=== PATIENT | female | born 1970 | race African-American/Black ===

== ENCOUNTER 2018-10-02 10:48 | Observation (INO) | payer OTHER ==
[~2018-10-02] VITALS: Ht 167.6 cm; Wt 95.0 kg
[~2018-10-02 10:48] MED LIST: FERR-18; PREN1TAB49
[2018-10-02] MEDS ORDERED: ONDANSETRON 4 MG INJ IV STA (12:56)
[2018-10-02] MEDS ORDERED: morphine 4 MG/ML VIAL IV STA (12:56)
[2018-10-02] MEDS ORDERED: NITROGLYCERIN 2% 1 GM OINT PKT TD STA (12:56)
[2018-10-02] MEDS ORDERED: ASPIRIN 325 MG TAB PO STA (12:56)
[2018-10-02] MEDS ORDERED: NITROGLYCERIN (SL) 0.4 MG TAB SL PRN (13:00)
[2018-10-02] MEDS ORDERED: MAGN400T28 PO (13:37)
[2018-10-02] MEDS ORDERED: AMLO-147 PO (13:37)
[2018-10-02] MEDS ORDERED: CLON-379 PO (13:38)
--- NOTE | 2018-10-02 13:39 | ERD ---
ER Documentation Chief Complaint Chief Complaint Complains of chest pain since this am HPI This is a 48-year-old female with a history of hypertension with family history of cardiac disease with her father had a OH at the age of 45 with possible high cholesterol. Planing of a few days of chest pain today became waxing and waning chest pressure with radiation to the left shoulder and down the left arm. The chest pain is currently gone but there is some still residual pressure or aching sensation in the left shoulder. No palpitations or syncope but had mild shortness of breath. ROS All systems reviewed and are negative except as per history of present illness. Medications Home Meds Reported Medications Clonidine Hcl* (Clonidine Hcl*) 0.1 Mg Tab, 0.1 MG PO DAILY PRN for ELEVATED BLOOD PRESSURE, TAB 10/02/18 Magnesium Oxide* (Magnesium Oxide*) 400 Mg Tablet, 400 MG PO DAILY, TAB 10/02/18 Amlodipine Besylate* (Amlodipine Besylate*) 10 Mg Tablet, 10 MG PO DAILY, #30 TAB 10/02/18 Discontinued Reported Medications Ferrous Sulfate (Iron) 325 Mg Tablet 07/28/10 Vits W-Ca,Fe,Fa(<1MG) () 1 Tab Tablet 07/28/10 Allergies Allergies: Coded Allergies: quinine (Verified Allergy, Unknown, RASH, 10/02/18) PMhx/Soc Medical and Surgical Hx: pt denies Surgical Hx Hx Cardiac Disorders: Yes (HTN) Hx Alcohol Use: No Hx Substance Use: No Hx Tobacco Use: No Smoking Status: Never smoker FmHx Family History: No coronary disease Physical Exam Vitals Vital Signs Date Temp Pulse Resp B/P (MAP) Pulse Ox O2 O2 Flow FiO2 Time Delivery Rate 10/02/18 Nasal 2 13:11 Cannula 10/02/18 71 20 138/91 100 Room Air 12:57 (107) 10/02/18 97.1 81 20 139/98 100 10:54 (112) Physical Exam Const: Well-developed, well-nourished Head: Atraumatic, normocephalic Eyes: Normal Conjunctiva, PERRLA, EOMI, normal sclera, no nystagmus ENT: Normal External Ears, Nose and Mouth, moist mucus membranes. Neck: Full range of motion. No meningismus, no lymphadenopathy. Resp: Clear to auscultation bilaterally, no wheezing, rhonchi, rales Cardio: Regular rate and rhythm, no murmurs, S1 S2 present Abd: Soft, non tender x 4, non distended. Normal bowel sounds, no guarding or rebound, no pulsitile abdominal masses or bruits Skin: No petechiae or rashes, no ecchymosis , no maculopapular rash Back: No midline or flank tenderness Ext: No cyanosis, or edema, FROM x 4, normal inspection, neurovascularly intact x 4 Neur: Awake and alert, STR 5/5 x 4, sensation intact x 4, no focal findings, cerebellum intact Psych: Normal Mood and Affect Result Diagram: 10/02/18 1300 10/02/18 1300 Results 24 hrs Laboratory Tests Test 10/02/18 13:00 White Blood Count 5.2 10^3/ul Red Blood Count 4.68 10^6/ul Hemoglobin 12.5 g/dl Hematocrit 39.9 % Mean Corpuscular Volume 85.3 fl Mean Corpuscular Hemoglobin 26.7 pg Mean Corpuscular Hemoglobin Concent 31.3 g/dl Red Cell Distribution Width 12.6 % Platelet Count 297 10^3/UL Mean Platelet Volume 9.3 fl Immature Granulocytes % 0.200 % Neutrophils % 49.9 % Lymphocytes % 36.3 % Monocytes % 8.0 % Eosinophils % 5.0 % Basophils % 0.6 % Nucleated Red Blood Cells % 0.0 /100WBC Immature Granulocytes # 0.010 10^3/ul Neutrophils # 2.6 10^3/ul Lymphocytes # 1.9 10^3/ul Monocytes # 0.4 10^3/ul Eosinophils # 0.3 10^3/ul Basophils # 0.0 10^3/ul Nucleated Red Blood Cells # 0.0 10^3/ul Sodium Level 143 mmol/L Potassium Level 4.5 mmol/L Chloride Level 103 mmol/L Carbon Dioxide Level 27 mmol/L Anion Gap 13 Blood Urea Nitrogen 10 mg/dl Creatinine 0.68 mg/dl Est Glomerular Filtrat Rate mL/min > 60 mL/min Glucose Level 100 mg/dl Calcium Level 9.7 mg/dl Total Bilirubin 0.1 mg/dl Direct Bilirubin 0.00 mg/dl Indirect Bilirubin 0.1 mg/dl Aspartate Amino Transf (AST/SGOT) 23 IU/L Alanine Aminotransferase (ALT/SGPT) 21 IU/L Alkaline Phosphatase 91 IU/L Troponin I < 0.012 ng/ml Total Protein 8.5 g/dl Albumin 4.7 g/dl Globulin 3.80 g/dl Albumin/Globulin Ratio 1.23 Current Medications Medications Dose Sig/David Start Time Status Last (Trade) Ordered Route PRN Stop Time Admin Dose Reason Admin Aspirin 325 mg ONCE STAT 10/02/18 DC 10/02/18 (Aspirin) PO 12:56 13:05 10/02/18 12:58 1 inch ONCE STAT 10/02/18 DC 10/02/18 Nitroglycerin TD 12:56 13:05 10/02/18 12:58 (Nitroglyceri n 2% Oint) 1 tab Q5M UP TO 3 10/02/18 Nitroglycerin DOSES PRN 13:00 SL .CHEST (Nitroglyceri PAIN n (Sl Tab) 0.4 Mg) Morphine 4 mg ONCE STAT 10/02/18 DC 10/02/18 Sulfate IV 12:56 13:05 (morphine) 10/02/18 12:58 Ondansetron 4 mg ONCE STAT 10/02/18 DC 10/02/18 HCl (Zofran IV 12:56 13:05 Inj) 10/02/18 12:58 650 mg ONCE ONCE 10/02/18 DC 10/02/18 Acetaminophen PO 14:30 14:35 (Tylenol 10/02/18 14:32 Tab) Procedures/MDM MR #: [id number] DOS: 10/02/18 1256 Ordering MD: BETTINA SINGH DO Location: E/R Room/Bed: PROCEDURE: XR Chest. CLINICAL INDICATION: chest pain TECHNIQUE: Single frontal view of the chest was obtained COMPARISON: None FINDINGS: The heart and mediastinum are within normal limits. The lungs are clear. There is no pleural effusion or pneumothorax. RPTAT: AA IMPRESSION: No acute disease. .Stepan Slater MD, Date Time Electronically viewed and signed by .Stepan Slater MD, MD on 10/02/2018 13:24 .S/ CC: BETTINA SINGH DO [id number] EKG: Rate/Rhythm: Normal Sinus Rhythm,NL intervals QRS, ST, QT: NORMAL MS, QRS, QT] Impression: NORMAL EKG Cardiac Admit MDM: Patient's symptoms are concerning for cardiac cause will require inpatient workup and continuous monitoring. Further w/u for ischemia, arrhythmia, PE or dissection will be deferred to the inpatient team. Departure Diagnosis: Primary Impression: Chest pain Chest pain type: unspecified Qualified Codes: R07.9 - Chest pain, unspecified Condition: Stable BETTINA SINGH DO Oct 02, 2018 13:39
[2018-10-02] MEDS ORDERED: ACETAMINOPHEN 325 MG TAB PO ONE (14:30)
[2018-10-02] MEDS ORDERED: SOD CHLORIDE 0.9% 1,000 ML IV SCH (14:46)
[2018-10-02] MEDS ORDERED: ACETAMINOPHEN 325 MG TAB PO PRN ×3 (15:00)
[2018-10-02] MEDS ORDERED: ONDANSETRON 4 MG INJ IV PRN ×3 (15:00)
[2018-10-02] MEDS ORDERED: morphine 4 MG/ML VIAL IV PRN (15:00)
[2018-10-02] MEDS ORDERED: HYDROCODONE/APAP (5/325) TAB PO PRN (15:00)
[2018-10-02] MEDS ORDERED: NACL 0.9% 3 ML SYG IV SCH (15:00)
[2018-10-02] MEDS ORDERED: IOHEXOL 100 ML ONE (15:15)
[2018-10-02] MEDS ORDERED: SOD CHLORIDE 0.9% 100 ML ONE (15:15)
--- NOTE | 2018-10-02 15:23 | HP ---
Date/Time of Note Date/Time of Note DATE: 10/02/18 TIME: 15:22 Assessment/Plan VTE Prophylaxis Pharmacological prophylaxis: other Lines/Catheters IV Catheter Type (from Nrsg): Peripheral IV Assessment/Plan Hospital Course Objective Physical exam General: Patient is laying in bed and answers questions appropriately Mentation: Patient is alert and oriented 4, Head: Normocephalic atraumatic Eyes: EOMI, pupils reactive to light Neck: Supple, nontender, midline Respiratory: Clear to auscultation bilaterally Cardiovascular: regular rate, no obvious murmurs Gastrointestinal: non-tender to palpation, bowel sounds heard. Neurological: Moves all extremities spontaneously Skin: No new skin lesions Assessment and plan Chest pain with radiation to the back -Rule out ACS -EKG noted -Cardiology consulted, Dr. Daley -Trend troponins, currently negative x1 -CT angio ordered to rule out dissection due to radiation of chest pain to the back, stat -Aspirin, statin Hypertension -Continue home meds Disposition -Continue to trend troponins, pending CT chest and cardiology consultation Result Diagram: 10/02/18 1300 10/02/18 1300 Results 24hrs Laboratory Tests Test 10/02/18 13:00 White Blood Count 5.2 Red Blood Count 4.68 Hemoglobin 12.5 Hematocrit 39.9 Mean Corpuscular Volume 85.3 Mean Corpuscular Hemoglobin 26.7 L Mean Corpuscular Hemoglobin Concent 31.3 L Red Cell Distribution Width 12.6 Platelet Count 297 Mean Platelet Volume 9.3 Immature Granulocytes % 0.200 Neutrophils % 49.9 Lymphocytes % 36.3 Monocytes % 8.0 Eosinophils % 5.0 Basophils % 0.6 Nucleated Red Blood Cells % 0.0 Immature Granulocytes # 0.010 Neutrophils # 2.6 Lymphocytes # 1.9 Monocytes # 0.4 Eosinophils # 0.3 Basophils # 0.0 Nucleated Red Blood Cells # 0.0 Sodium Level 143 Potassium Level 4.5 Chloride Level 103 Carbon Dioxide Level 27 Anion Gap 13 Blood Urea Nitrogen 10 Creatinine 0.68 Est Glomerular Filtrat Rate mL/min > 60 Glucose Level 100 Calcium Level 9.7 Total Bilirubin 0.1 L Direct Bilirubin 0.00 Indirect Bilirubin 0.1 Aspartate Amino Transf (AST/SGOT) 23 Alanine Aminotransferase (ALT/SGPT) 21 Alkaline Phosphatase 91 Troponin I < 0.012 Total Protein 8.5 H Albumin 4.7 Globulin 3.80 H Albumin/Globulin Ratio 1.23 HPI/ROS Admit Date/Time Admit Date/Time Hx of Present Illness Patient is an female with a past medical history significant for hypertension who presents to [facility] for new onset centralized chest pain. Patient states that it began this morning and it was centered in the substernal area of the chest and radiated to her back. Patient states that currently the chest pain has resolved however she was given pain medication. Patient also stated that the pain radiated down her left arm. Patient was concerned due to her father having a heart attack at age of 45. Patient currently has no other acute complaints and wants to go home however is concerned about her chest pain. Patient denies nausea, vomiting, headache, abdominal pain, leg pain PMH/Family/Social Past Medical History Medications Current Medications Nitroglycerin (Nitroglycerin (Sl Tab) 0.4 Mg) 1 tab Q5M UP TO 3 DOSES PRN SL .CHEST PAIN; Start 10/02/18 at 13:00 Sodium Chloride 1,000 ml @ 80 mls/hr [id number] IV ; Start 10/02/18 at 14:46; Stop 10/03/18 at 03:15 Ondansetron HCl (Zofran Inj) 4 mg ER BRIDGE PRN IV NAUSEA/VOMITING; Start 10/02/18 at 15:00; Stop 10/03/18 at 14:59 Acetaminophen (Tylenol Tab) 650 mg ER BRIDGE PRN PO .MILD PAIN 1-3 OR TEMP; Start 10/02/18 at 15:00; Stop 10/03/18 at 14:59 Ondansetron HCl (Zofran Inj) 4 mg ER BRIDGE PRN IV NAUSEA/VOMITING; Start 10/02/18 at 15:00; Stop 10/03/18 at 14:59 Acetaminophen (Tylenol Tab) 650 mg ER BRIDGE PRN PO .MILD PAIN 1-3 OR TEMP; Start 10/02/18 at 15:00; Stop 10/03/18 at 14:59 Coded Allergies: quinine (Verified Allergy, Unknown, RASH, 10/02/18) Social History Smoking Status: Never smoker Exam/Review of Systems Vital Signs Vitals Vital Signs Date Temp Pulse Resp B/P (MAP) Pulse Ox O2 O2 Flow FiO2 Time Delivery Rate 10/02/18 97.3 65 13 127/82 100 Nasal 2.0 14:35 (97) Cannula JENNIFER VALENTIN Oct 02, 2018 15:23
[2018-10-02 16:27] VITALS: PULSE 67
[2018-10-02 16:33] VITALS: Ht 167.6 cm; Wt 95.0 kg
--- NOTE | 2018-10-02 16:57 | RADRPT ---
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 Physician: JENNIFER VALENTIN Quality: Good Procedures: Transthoracic echocardiogram with complete 2D, M-Mode, and doppler examination. Indications: Coronary Artery Disease. 2D/M Mode Doppler Measurement Value Normal Ranges Measurement Value Normal Ranges LVIDd 2D 4.5 3.5 - 5.6 cm AV Mean Stephen 0.9 m/sec LVIDs 2D 3.5 2.1 - 4.1 cm AV Mean PG 4.0 mmHg LVPWd 2D 0.9 0.6 - 1.1 cm AV Peak Stephen 1.5 m/sec IVSd 2D 0.9 0.6 - 1.1 cm AV Peak PG 9.0 mmHg AoR Diam 2D 3.0 2.0 - 3.7 cm AV VTI 26.8 cm LA/Ao 2D 1 0 - 1 LVOT Mean Stephen 0.8 m/sec EF 2D 46.0 50.0 - 65.0 % LVOT Mean PG 3.0 mmHg LA Dimen 2D 3.0 2.3 - 4.0 cm LVOT Peak Stephen 1.2 m/sec IVC Diam 1.6 1.2 - 2.0 LVOT Peak PG 6.0 mmHg MV E Peak Stephen 0.8 m/sec MV A Peak Stephen 0.8 m/sec MV E/A 1.1 MV PHT 69.0 msec MV Decel Time 236 msec MV Decel [place] 4 MV E/A 1.1 MV PHT 69.0 msec MVA PHT 3.2 cm2 TR Peak Stephen 2.3 m/sec TR Peak PG 22.0 mmHg RVSP 25.0 mmHg RA Pressure 3.0 Findings Left Ventricle: Normal left ventricular systolic function. Normal left ventricular cavity size. Normal left ventricular wall thickness. Ejection fraction is visually estimated at 6570 %. Tissue Doppler/Mitral Doppler indices are within normal limits. Right Ventricle: Normal right ventricular size. Normal right ventricular systolic function. Left Atrium: The left atrium is normal in size. Right Atrium: The right atrium is normal in size. RA Pressure=3. Mitral Valve: Normal appearance and function of the mitral valve with trace physiologic regurgitation. Aortic Valve: Normal appearance of the aortic valve. No significant aortic stenosis or insufficiency. Tricuspid Valve: Normal appearance and function of the tricuspid valve with trace physiologic regurgitation. Normal right ventricular systolic pressure. Estimated peak PA systolic pressure 25 mmHg. Pulmonic Valve: Normal pulmonic valve appearance. Pericardium: Normal pericardium with no significant pericardial effusion. Aorta: Normal aortic root. IVC: Normal size and normal respiratory collapse consistent with normal right atrial pressure. Conclusions Normal left ventricular systolic function. Normal left ventricular cavity size. Normal left ventricular wall thickness. Ejection fraction is visually estimated at 65-70 %. Tissue Doppler/Mitral Doppler indices are within normal limits. Normal appearance and function of the mitral valve with trace physiologic regurgitation. Normal appearance of the aortic valve. No significant aortic stenosis or insufficiency. Normal appearance and function of the tricuspid valve with trace physiologic regurgitation. Normal right ventricular systolic pressure. Estimated peak PA systolic pressure 25 mmHg. Electronically Signed By: Zachery Daley 02-Oct-2018 16:56:40 -0800 Patient Name: AMIE GALLARDO Study Date: 02-Oct-2018 [id number]
--- NOTE | 2018-10-02 18:02 | CONS ---
Assessment/Plan Assessment/Plan Hospital Course (Demo Recall) Chest pain rule out acute coronary syndrome Hypertension: Currently under good control Family history early coronary artery disease Rule out dyslipidemia Recommendation: Continue with aspirin. Rule out SC with serial cardiac enzyme Continue with home amlodipine for now Statin for now Lexiscan stress test tomorrow afternoon to rule out significant obstructive coronary artery disease Thank you for his referral will continue to follow along with you. SAMY AL MD [facility] Consultation Date/Type/Reason Admit Date/Time Date of Consultation: Oct 02, 2018 Type of Consult Cardiology Reason for Consultation chest pain Requesting Provider: DOMENICA SALDAÑA Date/Time of Note DATE: 10/02/18 TIME: 17:58 Hx of Present Illness Interventional cardiology consultation note Chief complaint: Chest pain Reason for consult: Chest pain History of present illness: Thank you for this referral. History was obtained from the patient discussion with the staff and physician review of the chart. This is a pleasant 48-year-old -[place] female with history of hypertension and possibly dyslipidemia who presented to emergency room above complaint. Patient said that she was sitting on her desk when she had sudden onset of mild to moderate substernal anterior chest pain. It was pressure-like. Lasted about 5 minutes resolve on his own. Patient has been chest pain-free now has been admitted for further workup. Allergies: Quinidine Medications amlodipine. Magnesium Family history: Father with SC in his 40s Social history: Does not smoke or drink Past medical history: Hypertension, dyslipidemia Review of system: Patient denies all others except for above-mentioned Past Medical History Home Meds Reported Medications Clonidine Hcl* (Clonidine Hcl*) 0.1 Mg Tab, 0.1 MG PO DAILY PRN for ELEVATED BLOOD PRESSURE, TAB 10/02/18 Magnesium Oxide* (Magnesium Oxide*) 400 Mg Tablet, 400 MG PO DAILY, TAB 10/02/18 Amlodipine Besylate* (Amlodipine Besylate*) 10 Mg Tablet, 10 MG PO DAILY, #30 TAB 10/02/18 Discontinued Reported Medications Ferrous Sulfate (Iron) 325 Mg Tablet 07/28/10 Vits W-Ca,Fe,Fa(<1MG) () 1 Tab Tablet 07/28/10 Medications Current Medications Nitroglycerin (Nitroglycerin (Sl Tab) 0.4 Mg) 1 tab Q5M UP TO 3 DOSES PRN SL .CHEST PAIN; Start 10/02/18 at 13:00 Sodium Chloride 1,000 ml @ 80 mls/hr [id number] IV Last administered on 10/02/18at 14:46; Admin Dose 80 MLS/HR; Start 10/02/18 at 14:46; Stop 10/03/18 at 03:15 IV Flush (NS 3 ml) 3 ml PER PROTOCOL IV ; Start 10/02/18 at 15:00 Ondansetron HCl (Zofran Inj) 4 mg Q6H PRN IV NAUSEA/VOMITING; Start 10/02/18 at 15:00 Aspirin (Aspirin) 81 mg DAILY PO ; Start 10/03/18 at 09:00 Acetaminophen (Tylenol Tab) 650 mg Q6H PRN PO .PAIN 1-3 OR TEMP; Start 10/02/18 at 15:00 Acetaminophen/ Hydrocodone Bitart ([place] (5/325)) 1 tab Q6H PRN PO .PAIN 4-6; Start 10/02/18 at 15:00 Morphine Sulfate (morphine) 2 mg Q4H PRN IV .PAIN 7-10; Start 10/02/18 at 15:00 Famotidine (Pepcid) 20 mg Q12 PO ; Start 10/02/18 at 21:00 Heparin Sodium (Porcine) (Heparin (5000 Units/1ml)) 5,000 unit Q8 SC ; Start 10/02/18 at 22:00 Amlodipine Besylate (Norvasc) 10 mg DAILY PO ; Start 10/03/18 at 09:00 Magnesium Oxide (Mag-Ox 400) 400 mg DAILY PO ; Start 10/03/18 at 09:00 Atorvastatin Calcium (Lipitor) 80 mg HS PO ; Start 10/02/18 at 21:00 Allergies: Coded Allergies: quinine (Verified Allergy, Unknown, RASH, 10/02/18) Social History Smoking Status: Never smoker Exam/Review of Systems Vital Signs Vitals Vital Signs Date Temp Pulse Resp B/P (MAP) Pulse Ox O2 O2 Flow FiO2 Time Delivery Rate 10/02/18 Nasal 2.0 16:49 Cannula 10/02/18 67 16:27 10/02/18 97.8 16 97/59 (72) 100 16:09 Exam Exam General: no acute distress HEENT: NC/AT. pupils are equal. round. NECK: NO JVD. no stridor. CV: RRR. systolic murmur; no gallop or rubs. PULM: no wheezing or rhonchi. GI: SOFT, NT, ND, no rebound or guarding Extremity: trace B/L LE edema. no clubbing. neuro: awake and alert, OX3. Psych: calm and pleasant rectal: deferred EKG was personally within normal sinus rhythm. Normal ECG Echocardiogram was personally reviewed which shows: Normal left ventricular systolic function. Normal left ventricular cavity size. Normal left ventricular wall thickness. Ejection fraction is visually estimated at 65-70 %. Tissue Doppler/Mitral Doppler indices are within normal limits. Normal appearance and function of the mitral valve with trace physiologic regurgitation. Normal appearance of the aortic valve. No significant aortic stenosis or insufficiency. Normal appearance and function of the tricuspid valve with trace physiologic regurgitation. Normal right ventricular systolic pressure. Estimated peak PA systolic pressure 25 mmHg. Labs Result Diagram: 10/02/18 1300 10/02/18 1300 Results 24hrs Laboratory Tests Test 10/02/18 13:00 White Blood Count 5.2 Red Blood Count 4.68 Hemoglobin 12.5 Hematocrit 39.9 Mean Corpuscular Volume 85.3 Mean Corpuscular Hemoglobin 26.7 L Mean Corpuscular Hemoglobin Concent 31.3 L Red Cell Distribution Width 12.6 Platelet Count 297 Mean Platelet Volume 9.3 Immature Granulocytes % 0.200 Neutrophils % 49.9 Lymphocytes % 36.3 Monocytes % 8.0 Eosinophils % 5.0 Basophils % 0.6 Nucleated Red Blood Cells % 0.0 Immature Granulocytes # 0.010 Neutrophils # 2.6 Lymphocytes # 1.9 Monocytes # 0.4 Eosinophils # 0.3 Basophils # 0.0 Nucleated Red Blood Cells # 0.0 Sodium Level 143 Potassium Level 4.5 Chloride Level 103 Carbon Dioxide Level 27 Anion Gap 13 Blood Urea Nitrogen 10 Creatinine 0.68 Est Glomerular Filtrat Rate mL/min > 60 Glucose Level 100 Calcium Level 9.7 Total Bilirubin 0.1 L Direct Bilirubin 0.00 Indirect Bilirubin 0.1 Aspartate Amino Transf (AST/SGOT) 23 Alanine Aminotransferase (ALT/SGPT) 21 Alkaline Phosphatase 91 Troponin I < 0.012 Total Protein 8.5 H Albumin 4.7 Globulin 3.80 H Albumin/Globulin Ratio 1.23 Serum HCG, Qualitative NEGATIVE Medications Medications Current Medications Nitroglycerin (Nitroglycerin (Sl Tab) 0.4 Mg) 1 tab Q5M UP TO 3 DOSES PRN SL .CHEST PAIN; Start 10/02/18 at 13:00 Sodium Chloride 1,000 ml @ 80 mls/hr [id number] IV Last administered on 10/02/18at 14:46; Admin Dose 80 MLS/HR; Start 10/02/18 at 14:46; Stop 10/03/18 at 03:15 IV Flush (NS 3 ml) 3 ml PER PROTOCOL IV ; Start 10/02/18 at 15:00 Ondansetron HCl (Zofran Inj) 4 mg Q6H PRN IV NAUSEA/VOMITING; Start 10/02/18 at 15:00 Aspirin (Aspirin) 81 mg DAILY PO ; Start 10/03/18 at 09:00 Acetaminophen (Tylenol Tab) 650 mg Q6H PRN PO .PAIN 1-3 OR TEMP; Start 10/02/18 at 15:00 Acetaminophen/ Hydrocodone Bitart ([place] (5/325)) 1 tab Q6H PRN PO .PAIN 4-6; Start 10/02/18 at 15:00 Morphine Sulfate (morphine) 2 mg Q4H PRN IV .PAIN 7-10; Start 10/02/18 at 15:00 Famotidine (Pepcid) 20 mg Q12 PO ; Start 10/02/18 at 21:00 Heparin Sodium (Porcine) (Heparin (5000 Units/1ml)) 5,000 unit Q8 SC ; Start 10/02/18 at 22:00 Amlodipine Besylate (Norvasc) 10 mg DAILY PO ; Start 10/03/18 at 09:00 Magnesium Oxide (Mag-Ox 400) 400 mg DAILY PO ; Start 10/03/18 at 09:00 Atorvastatin Calcium (Lipitor) 80 mg HS PO ; Start 10/02/18 at 21:00 SAMY AL MD Oct 02, 2018 18:01
--- NOTE | 2018-10-02 19:25 | NUR ---
RN NOTE RECEIVED THE PT AT 1645 FROM ER , SKIN INTACT , PT AMBULATORY , PT REFUSED PICTURE TAKING . SR ON THE MONITOR , ON 2 L NASAL CANULA . STRESS TEST TOMORROW.
[2018-10-02 20:00] VITALS: BP 100/62; PULSE 67; PULSE 68
[2018-10-02] MEDS ORDERED: ATORVASTATIN 80 MG TAB PO SCH (21:00)
[2018-10-02] MEDS: FAMOTIDINE 20 MG TAB PO SCH (21:22)
[2018-10-02] MEDS: HEPARIN 5,000 UNIT/1 ML VIAL SC SCH (21:28)
[2018-10-03] VITALS (8 sets, daily range): BP systolic 102–131; BP diastolic 60–86; PULSE 55–85; RESP 18–20
--- NOTE | 2018-10-03 06:41 | NUR ---
RN NOTES: ORDERS NPO AFTER 0900 AM. PT SLEPT WELL LAST NIGHT. AMBULATING TO THE RESTROOM WITH STEADY GAIT. WALKING TO THE RESTROOM, ON ROOM AIR WITH NO SOB. NO C/O CHEST DISCOMFORT. EDUCATION ON SIDE EFFECTS OF HEPARIN SUBQ, PT VERBALIZED UNDERSTANDING. COLLECTED CLEAN CATCH URINE FOR TEST. PT SIT UP IN BED, ATE FOODS FROM HOME. PT AWARE OF NO CAFFEIN, NO TEA, NO SODA, AND NO CHOCOLATE ON HER EARLY MEAL. WILL HAVE STRESS TEST TODAY.
[2018-10-03] MEDS: HEPARIN 5,000 UNIT/1 ML VIAL SC SCH ×2 (07:03→14:00)
[2018-10-03] MEDS: FAMOTIDINE 20 MG TAB PO SCH (08:18)
[2018-10-03] MEDS ORDERED: AMLODIPINE 10 MG TAB PO SCH (09:00)
[2018-10-03] MEDS ORDERED: MAGNESIUM OXIDE 400 MG TAB PO SCH (09:00)
[2018-10-03] MEDS ORDERED: ASPIRIN 81 MG TAB PO SCH (09:00)
[2018-10-03] MEDS ORDERED: REGADENOSON 0.4 MG/5 ML SYG ONE (14:30)
--- NOTE | 2018-10-03 16:53 | CONS ---
Consult Date/Type/Reason Admit Date/Time Oct 02, 2018 at 14:47 Initial Consult Date 10/02/18 Requesting Provider: DOMENICA SALDAÑA Date/Time of Note DATE: 10/03/18 TIME: 16:51 Subjective Cardiology follow-up progress note Subjective: Patient with no chest pain or pressure no palpitation wants to go home. Discussed multiple physicians including patient regular public aid eligibility assistant Dr. Schwab Objective: General: no acute distress HEENT: NC/AT. pupils are equal. round. NECK: NO JVD. no stridor. CV: RRR. systolic murmur; no gallop or rubs. PULM: no wheezing or rhonchi. GI: SOFT, NT, ND, no rebound or guarding Extremity: trace B/L LE edema. no clubbing. neuro: awake and alert, OX3. Psych: calm and pleasant rectal: deferred EKG was personally within normal sinus rhythm. Normal ECG Echocardiogram was personally reviewed which shows: Normal left ventricular systolic function. Normal left ventricular cavity size. Normal left ventricular wall thickness. Ejection fraction is visually estimated at 65-70 %. Tissue Doppler/Mitral Doppler indices are within normal limits. Normal appearance and function of the mitral valve with trace physiologic regurgitation. Normal appearance of the aortic valve. No significant aortic stenosis or insufficiency. Normal appearance and function of the tricuspid valve with trace physiologic regurgitation. Normal right ventricular systolic pressure. Estimated peak PA systolic pressure 25 mmHg. Objective Vitals Vital Signs Date Temp Pulse Resp B/P (MAP) Pulse Ox O2 O2 Flow FiO2 Time Delivery Rate 10/03/18 85 16:24 10/03/18 98.5 18 131/86 100 15:51 (101) 10/03/18 Nasal 2.0 07:27 Cannula Intake and Output 10/02/18 10/02/18 10/03/18 1515:00 23:00 07:00 IntakeIntake Total 100 ml 550 ml BalanceBalance 100 ml 550 ml Results/Medications Result Diagram: 10/03/18 0516 10/03/18 0516 Results 24 hrs Laboratory Tests Test 10/02/18 18:49 10/03/18 00:25 10/03/18 05:16 Troponin I < 0.012 < 0.012 White Blood Count 5.1 Red Blood Count 4.13 L Hemoglobin 11.3 L Hematocrit 35.6 L Mean Corpuscular Volume 86.2 Mean Corpuscular Hemoglobin 27.4 L Mean Corpuscular Hemoglobin Concent 31.7 L Red Cell Distribution Width 12.7 Platelet Count 272 Mean Platelet Volume 9.3 Immature Granulocytes % 0.200 Neutrophils % 51.7 Lymphocytes % 34.3 Monocytes % 7.9 Eosinophils % 5.1 Basophils % 0.8 Nucleated Red Blood Cells % 0.0 Immature Granulocytes # 0.010 Neutrophils # 2.6 Lymphocytes # 1.7 Monocytes # 0.4 Eosinophils # 0.3 Basophils # 0.0 Nucleated Red Blood Cells # 0.0 Sodium Level 142 Potassium Level 4.8 Chloride Level 104 Carbon Dioxide Level 24 Anion Gap 14 H Blood Urea Nitrogen 13 Creatinine 0.81 Est Glomerular Filtrat Rate mL/min > 60 Glucose Level 107 Hemoglobin A1c 6.0 H Calcium Level 9.3 Magnesium Level 2.1 Total Bilirubin 0.1 L Direct Bilirubin 0.00 Indirect Bilirubin 0.1 Aspartate Amino Transf (AST/SGOT) 19 Alanine Aminotransferase (ALT/SGPT) 20 Alkaline Phosphatase 71 Creatine Kinase 146 Total Protein 7.0 # Albumin 3.9 Globulin 3.10 Albumin/Globulin Ratio 1.25 Triglycerides Level 113 Cholesterol Level 180 LDL Cholesterol, Calculated 117 HDL Cholesterol 40 Cholesterol/HDL Ratio 4.5 Thyroid Stimulating Hormone (TSH) 1.440 Home Meds Reported Medications Clonidine Hcl* (Clonidine Hcl*) 0.1 Mg Tab, 0.1 MG PO DAILY PRN for ELEVATED BLOOD PRESSURE, TAB 10/02/18 Magnesium Oxide* (Magnesium Oxide*) 400 Mg Tablet, 400 MG PO DAILY, TAB 10/02/18 Amlodipine Besylate* (Amlodipine Besylate*) 10 Mg Tablet, 10 MG PO DAILY, #30 TAB 10/02/18 Discontinued Reported Medications Ferrous Sulfate (Iron) 325 Mg Tablet 07/28/10 Vits W-Ca,Fe,Fa(<1MG) () 1 Tab Tablet 07/28/10 Medications Current Medications Nitroglycerin (Nitroglycerin (Sl Tab) 0.4 Mg) 1 tab Q5M UP TO 3 DOSES PRN SL .CHEST PAIN; Start 10/02/18 at 13:00 IV Flush (NS 3 ml) 3 ml PER PROTOCOL IV ; Start 10/02/18 at 15:00 Ondansetron HCl (Zofran Inj) 4 mg Q6H PRN IV NAUSEA/VOMITING; Start 10/02/18 at 15:00 Aspirin (Aspirin) 81 mg DAILY PO Last administered on 10/03/18at 08:18; Admin Dose 81 MG; Start 10/03/18 at 09:00 Acetaminophen (Tylenol Tab) 650 mg Q6H PRN PO .PAIN 1-3 OR TEMP; Start 10/02/18 at 15:00 Acetaminophen/ Hydrocodone Bitart ([place] (5/325)) 1 tab Q6H PRN PO .PAIN 4-6 Last administered on 10/02/18at 17:58; Admin Dose 1 TAB; Start 10/02/18 at 15:00 Morphine Sulfate (morphine) 2 mg Q4H PRN IV .PAIN 7-10; Start 10/02/18 at 15:00 Famotidine (Pepcid) 20 mg Q12 PO Last administered on 10/03/18at 08:18; Admin Dose 20 MG; Start 10/02/18 at 21:00 Heparin Sodium (Porcine) (Heparin (5000 Units/1ml)) 5,000 unit Q8 SC Last administered on 10/03/18at 07:03; Admin Dose 5,000 UNIT; Start 10/02/18 at 22:00 Amlodipine Besylate (Norvasc) 10 mg DAILY PO Last administered on 10/03/18at 08:17; Admin Dose 10 MG; Start 10/03/18 at 09:00 Magnesium Oxide (Mag-Ox 400) 400 mg DAILY PO Last administered on 10/03/18at 08:18; Admin Dose 400 MG; Start 10/03/18 at 09:00 Metoprolol Succinate (Toprol Xl) 12.5 mg QHS PO ; Start 10/03/18 at 21:00 Atorvastatin Calcium (Lipitor) 20 mg HS PO ; Start 10/03/18 at 21:00 Assessment/Plan Hospital Course (Demo Recall) Chest pain : TN was ruled out Hypertension: Currently under good control Family history early coronary artery disease Rule out dyslipidemia Recommendation: Continue with aspirin. Low-dose beta-anita and statin Lexiscan stress test shows a small amount of ischemia which is probably breast soft tissue attenuation. Above findings discussed with the patient. But decided to continue medical therapy only at this point. Patient to follow-up with her regular public aid eligibility assistant and if he has recurrent chest pain we will can consider more invasive approach as well. Thank you for his referral will continue to follow along with you. SAMY AL MD [facility] SAMY AL MD Oct 03, 2018 16:53
[2018-10-03] MEDS ORDERED: ASPI-831 PO (17:00)
[2018-10-03] MEDS ORDERED: ATOR20TA65 PO (17:00)
[2018-10-03] MEDS ORDERED: METO-335 PO (17:00)
--- NOTE | 2018-10-03 17:02 | PDOCDIS ---
Discharge Instructions CONDITION [id number] Patient Condition: [id number] Stable ACTIVITY: [id number] Activity Restrictions: [id number] Slowly Increase Activity FOLLOW UP/APPOINTMENTS Follow-up Plan 1. Please follow up with your primary care provider/breast surgeon as soon as possible. Your breast surgeon and our breast surgeon have already spoken. Please take medications as directed, prescriptions will be provided. JENNIFER VALENTIN Oct 03, 2018 17:02
--- NOTE | 2018-10-03 17:07 | DS ---
Date/Time of Note Date/Time of Note DATE: 10/03/18 TIME: 17:07 Discharge Summary Admission/Discharge Info Admit Date/Time Oct 02, 2018 at 14:47 Discharge Date/Time Patient Condition: Stable Hx of Present Illness Patient is an female with a past medical history significant for hypertension who presents to [facility] for new onset centralized chest pain. Patient states that it began this morning and it was centered in the substernal area of the chest and radiated to her back. Patient states that currently the chest pain has resolved however she was given pain medication. Patient also stated that the pain radiated down her left arm. Patient was concerned due to her father having a heart attack at age of 45. Patient currently has no other acute complaints and wants to go home however is concerned about her chest pain. Patient denies nausea, vomiting, headache, abdominal pain, leg pain Hospital Course Patient is a female with past medical history significant for hypertension who presented to [facility] for chest pain. Patient was admitted for acute coronary syndrome rule out and was also seen by cardiology. Patient had troponins drawn and were negative and patient underwent cardiac stress test which did find a small reversible perfusion defect, after discussion with cardiology and patient's own rubber flap tuber machine operator who was determined the best course of action was to continue on maximum medical therapy and for patient to follow-up with her rubber flap tuber machine operator as soon as possible. As of this time patient already has an appointment with rubber flap tuber machine operator and the rubber flap tuber machine operator has been updated by our rubber flap tuber machine operator here in house. Patient will be discharged on appropriate additional medications to follow-up with a rubber flap tuber machine operator soon as possible Discharge diagnosis Chest pain, resolved Hypertension Coronary artery disease, questionable Home Meds Active Scripts Aspirin (Aspirin) 81 Mg Chew, 81 MG PO DAILY for 30 Days, #30 TAB Prov:JENNIFER VALENTIN 10/03/18 Metoprolol Succinate* (Toprol XL*) 25 Mg Tab.sr.24h, 12.5 MG PO QHS for 30 Days, #15 Prov:JENNIFER VALENTIN 10/03/18 Atorvastatin Calcium (Atorvastatin Calcium) 20 Mg Tablet, 20 MG PO HS for 30 Day s, #30 TAB Prov:JENNIFER VALENTIN 10/03/18 Reported Medications Clonidine Hcl* (Clonidine Hcl*) 0.1 Mg Tab, 0.1 MG PO DAILY PRN for ELEVATED BLOOD PRESSURE, TAB 10/02/18 Magnesium Oxide* (Magnesium Oxide*) 400 Mg Tablet, 400 MG PO DAILY, TAB 10/02/18 Amlodipine Besylate* (Amlodipine Besylate*) 10 Mg Tablet, 10 MG PO DAILY, #30 TAB 10/02/18 Discontinued Reported Medications Ferrous Sulfate (Iron) 325 Mg Tablet 07/28/10 Vits W-Ca,Fe,Fa(<1MG) () 1 Tab Tablet 07/28/10 Follow-up Plan 1. Please follow up with your primary care provider/rubber flap tuber machine operator as soon as possible. Your rubber flap tuber machine operator and our rubber flap tuber machine operator have already spoken. Please take medications as directed, prescriptions will be provided. Primary Care Provider Not On Staff Doctor Time spent on discharge: > 30 minutes Pending Labs Laboratory Tests Test 10/02/18 18:49 10/03/18 00:25 10/03/18 05:16 Troponin I < 0.012 < 0.012 ng/ml (0.000-0.120) ng/ml (0.000-0.120 ) White Blood Count 5.1 10^3/ul (4.8-10.8) Red Blood Count 4.13 10^6/ul (4.20-5.40 ) Hemoglobin 11.3 g/dl (12.0-16.0) Hematocrit 35.6 % (37.0-47.0) Mean Corpuscular 86.2 Volume fl (82.0-101.0) Mean Corpuscular 27.4 Hemoglobin pg (29.0-33.0) Mean Corpuscular 31.7 Hemoglobin Concent g/dl (32.0-37.0) Red Cell 12.7 % (11.5-14.5) Distribution Width Platelet Count 272 10^3/UL (140-415) Mean Platelet 9.3 fl (7.4-10.4) Volume Immature 0.200 Granulocytes % % (0.001-0.429) Neutrophils % 51.7 % (39.0-77.0) Lymphocytes % 34.3 % (15.0-51.0) Monocytes % 7.9 % (0.0-11.0) Eosinophils % 5.1 % (0.0-7.0) Basophils % 0.8 % (0.0-2.0) Nucleated Red Blood 0.0 Cells % /100WBC (0.0-0.0) Immature 0.010 Granulocytes # 10^3/ul (0.0-0.031 ) Neutrophils # 2.6 10^3/ul (1.6-7.5) Lymphocytes # 1.7 10^3/ul (0.8-2.9) Monocytes # 0.4 10^3/ul (0.3-0.9) Eosinophils # 0.3 10^3/ul (0.0-0.5) Basophils # 0.0 10^3/ul (0.0-0.1) Nucleated Red Blood 0.0 Cells # 10^3/ul (0.0-0.0) Sodium Level 142 mmol/L (135-144) Potassium Level 4.8 mmol/L (3.5-5.1) Chloride Level 104 mmol/L (97-110) Carbon Dioxide 24 mmol/L (21-31) Level Anion Gap 14 (5-13) Blood Urea 13 mg/dl (7-20) Nitrogen Creatinine 0.81 mg/dl (0.44-1.00) Est Glomerular > 60 mL/min (>60) Filtrat Rate mL/min Glucose Level 107 mg/dl (70-220) Hemoglobin A1c 6.0 % (0-5.9) Calcium Level 9.3 mg/dl (8.4-10.2) Magnesium Level 2.1 mg/dl (1.7-2.5) Total Bilirubin 0.1 mg/dl (0.2-1.3) Direct Bilirubin 0.00 mg/dl (0.00-0.20) Indirect Bilirubin 0.1 mg/dl (0-1.1) Aspartate Amino 19 IU/L (15-46) Transf (AST/SGOT) Alanine 20 IU/L (13-69) Aminotransferase (A LT/SGPT) Alkaline 71 IU/L (42-121) Phosphatase Creatine Kinase 146 IU/L (23-200) Total Protein 7.0 g/dl (6.1-8.1) Albumin 3.9 g/dl (3.3-4.9) Globulin 3.10 g/dl (1.3-3.2) Albumin/Globulin 1.25 Ratio Triglycerides 113 mg/dl (0-149) Level Cholesterol Level 180 mg/dl (100-200) LDL Cholesterol, 117 mg/dl Calculated HDL Cholesterol 40 mg/dl (34-88) Cholesterol/HDL 4.5 RATIO Ratio Thyroid Stimulating 1.440 Hormone (TSH) MIU/L (0.465-4.680 ) JENNIFER VALENTIN Oct 03, 2018 17:07
--- NOTE | 2018-10-03 19:58 | TMLRPT ---
DATE: 10/03/2018 PROCEDURE: Lexiscan stress test. INDICATION: Chest pain. DESCRIPTION: Lexiscan was performed as per protocol. FINDINGS: 1. Baseline EKG showed normal sinus rhythm, nonspecific T-wave abnormality. Heart rate baseline is 72, blood pressure 112/71, heart rate at peak stress is 90, blood pressure 122/72. 2. No significant ischemic ST changes noted. 3. No significant arrhythmias noted. CONCLUSIONS: Completion of Lexiscan stress test per protocol. See nuclear medicine result for final report. Dictated By: SAMY AL MD AV/NTS Conf#: [id number] DID#: [id number] CC: JENNIFER VALENTIN MD;*EndCC*
[2018-10-03] MEDS ORDERED: ATORVASTATIN 20 MG TAB PO SCH (21:00)
[2018-10-03] MEDS ORDERED: METOPROLOL (XL) 25 MG TAB PO SCH (21:00)
== END 2018-10-03 17:24 | disposition home or self-care (01) ==
LOC: E/R 10:48 → 6WM 14:47
PROVIDERS: ADMIT Internal Medicine; ATTEND Internal Medicine
DX: R07.9 Chest pain, unspecified (principal); I10 Essential (primary) hypertension
CPT/HCPCS: 36415; 71045; 71275; 78452; 80053; 80061; 82550; 83036; 83735; 84443; 84484; 84703; 85025; 93005; 93017; 93306; 96374; 96375; 99285; A9500; A9505; G0378; J1644; J2270; J2405; J2785; J7030; Q9967